=== PATIENT | male | born 1980 | race Two or more races ===

== ENCOUNTER 2025-06-26 14:08 | Outpatient (CLI) | payer BC | END 2025-06-26 14:09 | disposition home or self-care (01) | LOC: CT 14:08 | PROVIDERS: ATTEND Family Medicine Sports Medicine | DX: S82.65XD Nondisplaced fracture of lateral malleolus of left fibula, subsequent encounter for closed fracture with routine healing (principal); M25.472 Effusion, left ankle; S82.302D Unspecified fracture of lower end of left tibia, subsequent encounter for closed fracture with routine healing; R93.7 Abnormal findings on diagnostic imaging of other parts of musculoskeletal system ==